=== PATIENT | male | born 1970 | race Two or more races ===

== ENCOUNTER → 2020-07-05 | Outpatient (CLI) | payer MEDICAID ==
[~2020-07-05] VITALS: Ht 170.2 cm; Wt 111.1 kg
[~2020-07-05] MED LIST: CHOL20007 PO; GABA300C10 PO; METO-169 PO; PRAM0.757 PO
== END | disposition home or self-care (01) ==
LOC: CATH 10:29 → EDSTATUS 07-10 07:36
PROVIDERS: ATTEND Internal Medicine Cardiovascular Disease
DX: I35.0 Nonrheumatic aortic (valve) stenosis (principal); I10 Essential (primary) hypertension; E66.9 Obesity, unspecified; Z20.828 Contact with and (suspected) exposure to other viral communicable diseases; Z68.38 Body mass index [BMI] 38.0-38.9, adult

== ENCOUNTER → 2021-07-30 | Day surgery (SDC) | payer MEDICAID ==
[~2021-07-30] VITALS: Ht 167.6 cm; Wt 107.0 kg
[~2021-07-30] MED LIST changes: -GABA300C10 PO; +LIDOCAINE VISCOUS 2% 15ML UD MT ONE; +LISI-716 PO; -METO-169 PO; +MIDAZOLAM HCL 2MG/2ML 2ml VIAL (1mg/ml) IV ONE; +MULT-1018 PO; +OMEG100078 PO; -PRAM0.757 PO; +fentaNYL CITRATE 100 MCG/2 ML VL IV ONE
== END | disposition home or self-care (01) ==
LOC: CATH 07:03
PROVIDERS: ATTEND Internal Medicine Cardiovascular Disease
DX: I08.3 Combined rheumatic disorders of mitral, aortic and tricuspid valves (principal); Z20.822 Contact with and (suspected) exposure to COVID-19
CPT/HCPCS: 93312; C1769; C1887; C1894; J2250; J3010; J7030; J7040; U0003; 99152